=== PATIENT | female | born 1960 | race Caucasian/White ===

== ENCOUNTER → 2016-10-26 | Outpatient (CLI) | payer OTHER ==
[~2016-10-26] MED LIST: ACZONE TOP; ALDACTONE PO; AVALIDE 150/12.1 TAB PO; BREO INHALER INH; CIPROFLOXACIN2.5 ML OP; CLEOCIN T 1% TOP; COZAAR PO; DESYREL50 M1 PO; LIPITOR PO; NEURONTIN PO; OMEPRAZOLE PO; PRAVASTATIN SOD40 MG PO; PROAIR INHALER INH; TRAMADOL HCL50 M1 PO; TRAMADOL PO; VITAMIN D PO; VOLTAREN75 MG PO; XANAX PO; XANAX0.5 MG PO
[2016-10-26 14:59] LABS: BLOOD UREA NITROGEN 16 mg/dL (9-23); BUN/CREATININE RATIO 17.77; CALCIUM SERUM 9.7 mg/dL (8.4-10.2); CARBON DIOXIDE 29 mmol/L (22-31); CHLORIDE 101 mmol/L (100-111); CREATININE SERUM 0.9 mg/dL (0.6-1.4); GLOM FILT RATE Estimated ABOVE60 mL/min (>60); GLUCOSE FASTING 136 mg/dL (70-110); POTASSIUM 4.1 mmol/L (3.5-5.1); SODIUM 139 mmol/L (135-145)
== END | disposition home or self-care (01) ==
LOC: CLAB 14:04
PROVIDERS: Dermatology
DX: L70.0 Acne vulgaris (principal)
CPT/HCPCS: 36415; 80048

== ENCOUNTER 2017-02-11 17:36 | Emergency (ER) | payer OTHER ==
[~2017-02-11 17:36] MED LIST changes: -ACZONE TOP; -ALDACTONE PO; -BREO INHALER INH; -CLEOCIN T 1% TOP; -COZAAR PO; -LIPITOR PO; -NEURONTIN PO; -OMEPRAZOLE PO; -PROAIR INHALER INH; -TRAMADOL PO; -VITAMIN D PO; -XANAX PO
[2017-02-11] MEDS ORDERED: NEURONTIN PO ×2 (17:44)
[2017-02-11] MEDS ORDERED: VITAMIN D PO (17:44)
[2017-02-11] MEDS ORDERED: PROAIR INHALER INH (17:48)
[2017-02-11] MEDS ORDERED: ACZONE TOP (17:48)
[2017-02-11] MEDS ORDERED: XANAX PO (17:49)
[2017-02-11] MEDS ORDERED: CLEOCIN T 1% TOP (17:49)
[2017-02-11] MEDS ORDERED: LIPITOR PO (17:49)
[2017-02-11] MEDS ORDERED: BREO INHALER INH (17:50)
[2017-02-11] MEDS ORDERED: OMEPRAZOLE PO (17:50)
[2017-02-11] MEDS ORDERED: COZAAR PO (17:50)
[2017-02-11] MEDS ORDERED: ALDACTONE PO (17:51)
[2017-02-11] MEDS ORDERED: TRAMADOL PO (17:51)
== END 2017-02-11 18:49 | disposition home or self-care (01) ==
LOC: SED 17:36
DX: G89.29 Other chronic pain (principal); M54.5 Low back pain; R03.0 Elevated blood-pressure reading, without diagnosis of hypertension; E11.9 Type 2 diabetes mellitus without complications; F41.9 Anxiety disorder, unspecified; E03.9 Hypothyroidism, unspecified; Z88.5 Allergy status to narcotic agent; Z88.0 Allergy status to penicillin; Z90.710 Acquired absence of both cervix and uterus; F17.210 Nicotine dependence, cigarettes, uncomplicated; Z79.899 Other long term (current) drug therapy
CPT/HCPCS: 96372; 99283; J1885; J2360